=== PATIENT | female | born 1990 | race Caucasian/White ===

== ENCOUNTER 2023-03-18 06:09 | Inpatient (IN) | payer BC ==
--- NOTE | 2023-03-18 12:25 | PR ---
[facility] [address] [facility] [place], [place] [address] Signed Progress Notes IP Datetime Report Generated by CPN: 03/18/2023 12:25 PROGRESS NOTES: [id number] Impression: Reassuring Heart Rate Procedures: Sterile Vag Exam Plan: Augmentation VITAL SIGNS: [id number] Vital Signs: Reviewed; Within Normal Limits EXAM: [id number] Dilatation: 3.0 Effacement: 80 Station: -2 Contractions: q 3 to 5 min MEMBRANES: [id number] Comments: Comfortable after epidural but contractions have significantly spaced out. Will start low dose pitocin augmentation. FETUS A: [id number] FHR Baseline: 140 Variability: Moderate 6-25bpm Accelerations: 15X15 Decelerations: None FHR Category: Category I Presentation: Vertex Comments on Fetus A: no evidence of metabolic acidosis FETUS B: [id number] Signing Physician: Suzi Galvez MD Copies: ~ *Electronically Signed* 03/18/23 1225 SUZI GALVEZ MD PATIENT NAME: JEREMI MATHEW PROGRESS NOTE DATE OF : 89 PHYSICIAN: SUZI GALVEZ MD RPT #: [id number] REPORT IS CONFIDENTIAL AND NOT TO BE RELEASED WITHOUT AUTHORIZATION
--- NOTE | 2023-03-18 18:09 | PR ---
[facility] [address] [facility] [place] [address] Signed Progress Notes IP Datetime Report Generated by ZACK: 03/18/2023 18:09 PROGRESS NOTES: [id number] Impression: Normal Progression of Labor; Reassuring Heart Rate Procedures: Sterile Vag Exam Plan: Continue Present Management VITAL SIGNS: [id number] Vital Signs: Reviewed; Within Normal Limits EXAM: [id number] Dilatation: 4.0 Effacement: 90 Station: -2 Contractions: q 3 to 5 min MEMBRANES: [id number] Comments: Still comfortable. Appears to be in good pattern with pitocin. Will continue position changes. FETUS A: [id number] FHR Baseline: 140 Variability: Moderate 6-25bpm Accelerations: 15X15 Decelerations: None FHR Category: Category I Presentation: Vertex Comments on Fetus A: no evidence of metabolic acidosis FETUS B: [id number] Signing Physician: Suzi Galvez MD Copies: ~ *Electronically Signed* 03/18/23 1809 SUZI GALVEZ MD PATIENT NAME: PRIYANKAJANELLEJEREMIRA HEREDIA PROGRESS NOTE DATE OF : 89 PHYSICIAN: SUZI GALVEZ MD RPT #: [id number] REPORT IS CONFIDENTIAL AND NOT TO BE RELEASED WITHOUT AUTHORIZATION
--- NOTE | 2023-03-18 20:24 | PR ---
[facility] [address] [facility] [place], [place] [address] Signed Progress Notes IP Datetime Report Generated by ZACK: 03/18/2023 20:24 PROGRESS NOTES: [id number] Impression: Normal Progression of Labor; Reassuring Heart Rate Procedures: Intrauterine Pressure Catheter Plan: Continue Present Management VITAL SIGNS: [id number] Vital Signs: Reviewed; Within Normal Limits EXAM: [id number] Dilatation: 4.0 Effacement: 90 Station: -2 Contractions: q 3 to 5 min MEMBRANES: [id number] Comments: Still comfortable. Unable to picker feeder contractions well. Will place IUPC now to get better idea of pattern and strength of contractions. FETUS A: [id number] FHR Baseline: 140 Variability: Moderate 6-25bpm Accelerations: 15X15 Decelerations: None FHR Category: Category I Presentation: Vertex Comments on Fetus A: no evidence of metabolic acidosis FETUS B: [id number] Signing Physician: Suzi Galvez MD Copies: ~ *Electronically Signed* 03/18/232023 SUZI GALVEZ MD PATIENT NAME: JEREMI MATHEW PROGRESS NOTE DATE OF : [birth year] PHYSICIAN: SUZI GALVEZ MD RPT #: [id number] REPORT IS CONFIDENTIAL AND NOT TO BE RELEASED WITHOUT AUTHORIZATION
--- NOTE | 2023-03-18 22:22 | PR ---
[facility] [address] [facility] [place] [place] [address] Signed Progress Notes IP Datetime Report Generated by ZACK: 03/18/2023 22:22 PROGRESS NOTES: [id number] Impression: Reassuring Heart Rate Procedures: Sterile Vag Exam Plan: Continue Present Management VITAL SIGNS: [id number] Vital Signs: Reviewed; Within Normal Limits EXAM: [id number] Dilatation: 5.0 Effacement: 100 Station: -1 Contractions: q 3 to 5 min MEMBRANES: [id number] Comments: Still comfortable. status stable. Not much change. Will continue with position changes and increases in pitocin as needed. FETUS A: [id number] FHR Baseline: 140 Variability: Moderate 6-25bpm Accelerations: 15X15 Decelerations: None FHR Category: Category I Presentation: Vertex Comments on Fetus A: no evidence of metabolic acidosis FETUS B: [id number] Signing Physician: Suzi Galvez MD Copies: ~ *Electronically Signed* 03/18/232221 SUZI GALVEZ MD PATIENT NAME: JANELLE MATHEWRA SOUZALE PROGRESS NOTE DATE OF : 89 PHYSICIAN: SUZI GALVEZ MD RPT #: [id number] REPORT IS CONFIDENTIAL AND NOT TO BE RELEASED WITHOUT AUTHORIZATION
--- NOTE | 2023-03-19 03:57 | PR ---
[facility] [address] [facility] [place], [place] [address] Signed Progress Notes IP Datetime Report Generated by CPN: 03/19/2023 03:57 PROGRESS NOTES: [id number] Impression: Normal Progression of Labor Procedures: Sterile Vag Exam Plan: Continue Present Management VITAL SIGNS: [id number] Vital Signs: Reviewed; Within Normal Limits EXAM: [id number] Dilatation: 8.0 Effacement: 100 Station: 0 Contractions: q 3 to 5 min MEMBRANES: [id number] Comments: Progressed well and now complete. Will begin pushing. FETUS A: [id number] FHR Baseline: 140 Variability: Moderate 6-25bpm Accelerations: 15X15 Decelerations: None FHR Category: Category I Presentation: Vertex Comments on Fetus A: no evidence of metabolic acidosis FETUS B: [id number] Signing Physician: Suzi Galvez MD Copies: ~ *Electronically Signed* 03/19/23 0357 SUZI GALVEZ MD PATIENT NAME: JEREMI MATHEW GIOVANNA PROGRESS NOTE DATE OF : 90 PHYSICIAN: SUZI GALVEZ MD RPT #: [id number] REPORT IS CONFIDENTIAL AND NOT TO BE RELEASED WITHOUT AUTHORIZATION
--- NOTE | 2023-03-20 09:25 | PR ---
[facility] [address] [facility] [place], [place] [address] Signed PP Progress Notes Datetime Report Generated by CPN: 03/20/2023 09:25 SUBJECTIVE: [id number] Pain: Within Normal Limits Vital Signs: [id number] Vital Signs: Reviewed; Within Normal Limits Cardiovascular: Not Done Respiratory: Not Done Abdomen/Uterus: Abnormal Lochia: Normal Vulva/Perineum: Not Done Breasts: Not Done CVA Tenderness: Not Done Extremities: Normal Incision: Not Applicable Progress: Normal Exam Comments: Fundus firm, NT @ U-2. H/H 8.6/25.3, WBC 12.3, plat 135k IMPRESSION/PLAN/PROCEDURES: [id number] Impression: Normal Progression Plan: Continue Present Management Progress Notes: Doing well but she is generally achy. Will push regular ibuprofen use. Signing Physician: Suzi Galvez MD Copies: ~ *Electronically Signed* 03/20/23924 SUZI GALVEZ MD PATIENT NAME: JEREMI MATHEW PROGRESS NOTE DATE OF : 90 PHYSICIAN: SUZI GALVEZ MD RPT #: [id number] REPORT IS CONFIDENTIAL AND NOT TO BE RELEASED WITHOUT AUTHORIZATION
--- NOTE | 2023-03-20 09:43 | NUR ---
PT IN BED WITH BABY. BABY FUSSY BUT SETTLED SOON. DAD IN CHAIR. BOTH DENIED NEEDS. DECLINED PRAYER.
[2023-03-20 21:02] VITALS: BP 130/59
--- NOTE | 2023-03-21 09:20 | PR ---
[facility] [address] [place] [place] [address] Signed PP Progress Notes Datetime Report Generated by ZACK: 03/21/2023 09:20 SUBJECTIVE: [id number] Pain: Within Normal Limits Nausea/Vomiting: Denies Vital Signs: [id number] Vital Signs: Reviewed; Within Normal Limits Cardiovascular: Normal Respiratory: Normal Abdomen/Uterus: Normal Lochia: Normal Vulva/Perineum: Not Done Breasts: Normal CVA Tenderness: Not Done Extremities: Normal Incision: Not Applicable Progress: Normal Exam Comments: NAD, sitting in bed nursing baby RRR No dyspnea/ retractions Abd SNTND, FFBU Ext 1+ pitting BLLE edema, neg David's BL IMPRESSION/PLAN/PROCEDURES: [id number] Impression: Normal Progression Plan: Continue Present Management; Discharge Other Procedures: Iron infusion Progress Notes: PPD#2 s/p -progressing well : ambulating, voiding, tolerating regular diet, well, pain well controlled with motrin/ tylenol, hoping to go home today -hgb 8.7 from 8.6 yesterday, discussed IV iron infusion prior to DC today, pt would like to proceed Anticipate DC to home later today, condoms for contraception Signing Physician: Machelle Mcclain DO *Electronically Signed* 03/21/23 09 MACHELLE MCCLAIN DO PATIENT NAME: JEREMI MATHEW PROGRESS NOTE DATE OF : 90 PHYSICIAN: MACHELLE MCCLAIN DO [facility] #: [id number] REPORT IS CONFIDENTIAL AND NOT TO BE RELEASED WITHOUT AUTHORIZATION
== END 2023-03-21 13:27 | disposition home or self-care (01) | DRG 806 ==
LOC: FBC 06:09
PROVIDERS: ADMIT Obstetrics & Gynecology; ATTEND Obstetrics & Gynecology
PROC: 10E0XZZ Delivery of Products of Conception, External Approach (ICD-10-PCS; principal; 2023-03-18)
PROC: 0KQM0ZZ Repair Perineum Muscle, Open Approach (ICD-10-PCS; 2023-03-18)
PROC: 10H07YZ Insertion of Other Device into Products of Conception, Via Natural or Artificial Opening (ICD-10-PCS; 2023-03-18)
PROC: 00HU33Z Insertion of Infusion Device into Spinal Canal, Percutaneous Approach (ICD-10-PCS; 2023-03-18)
PROC: 3E0R3BZ Introduction of Anesthetic Agent into Spinal Canal, Percutaneous Approach (ICD-10-PCS; 2023-03-18)
PROC: 3E033VJ Introduction of Other Hormone into Peripheral Vein, Percutaneous Approach (ICD-10-PCS; 2023-03-18)
PROC: 3E0P7VZ Introduction of Hormone into Female Reproductive, Via Natural or Artificial Opening (ICD-10-PCS; 2023-03-18)
PROC: 10907ZC Drainage of Amniotic Fluid, Therapeutic from Products of Conception, Via Natural or Artificial Opening (ICD-10-PCS; 2023-03-18)
DX: O26.86 Pruritic urticarial papules and plaques of pregnancy (PUPPP) (principal); D62 Acute posthemorrhagic anemia; O99.344 Other mental disorders complicating childbirth; F41.9 Anxiety disorder, unspecified; Z37.0 Single live birth; O99.02 Anemia complicating childbirth; Z67.10 Type A blood, Rh positive; O70.1 Second degree perineal laceration during delivery; Z3A.39 39 weeks gestation of pregnancy; Z86.79 Personal history of other diseases of the circulatory system; Z79.899 Other long term (current) drug therapy
CPT/HCPCS: 36415; 85027; 86850; 86900; 86901; A9270; J2405; J2540; J2590; J7121; Q0138